=== PATIENT | male | born 2000 | race Caucasian/White ===

== ENCOUNTER 2023-11-28 21:11 | Emergency (ER) | payer BC ==
--- OUTSIDE RECORDS SUMMARY | 2023-11-28 21:15 | XMS REPORT | Continuity of Care Document ---
Author Name Unknown Address [address] [place] [address] [facility] [address] [place] [address] Care Team Providers Care Firearms Inspector Name Role Phone Pcp, Patient Does Not Have A Primary Care Physic [place] Doctor Unassigned, [place] Attending Clinician [facility], [facility] Fam Pob I Attending Clinician Unavailab Elsie Lovelace Attending Clinician ELSIE MCCAIN Attending Clinician Unavailable Payers Payer Name Policy Type Policy Number Effective Date Expirati on Date Source Allergies, Adverse Reactions, Alerts Allergy Name Allergy Type Status Severity Reaction(s) Onset Date Inactive Date Treating Clinician Comments Source NO KNOWN ALLERGIE S Drug Class Active [facility] Social History Social Habit Start Date Stop Date Quantity Comments Source Sexual orientation U [facility] Exposure to SARS-CoV-2 (event) 2019-09-30 00:00:00 2019-10-30 11:42:00 Not sure [facility] Sex Assigned At 2000 00:00:00 2000 00:00:00 [facility] Smoking Status Start Date Stop Date Source Tobacco smoking consumption unknown [facility] Procedures Procedure Date / Time Performed Performing Clinicia n Source EXTERNAL PROVIDER RECORDS 2019-11-09 05:01:00 Doctor Unassigned, [place] [facility] Encounters Start Date/Time End Date/Time Encounter Type Admission Type Attending Clinicians Care Facility Care Department Encounter ID Source 2019-11-09 00:00:00 2019-11-09 00:00:00 Orders Only Doctor Unassigned, [place] [facility] 1.114 [id number] [facility] 2019-10-31 00:00:00 2019-10-31 00:00:00 Patient Secure Msg Doctor Unassigned, [place] [facility] 1..114 [id number] [facility] 2019-10-30 11:38:46 2019-10-30 11:43:12 Laboratory Only Lab, [facility] [address] .114 [id number] [facility] 2019-10-30 11:40:00 2019-10-30 11:40:00 Outpatient R [facility] [id number] [facility] 2019-10-22 16:00:00 2019-10-22 16:00:00 Outpatient R [facility] [id number] [facility] 2019-10-22 14:52:32 2019-10-22 15:12:32 Laboratory Only Lab, [facility] .114 [id number] [facility] 2019-10-13 00:00:00 2019-10-13 00:00:00 Telephone Lab, [facility] Pob I [facility] 1.114 [id number] [facility] 2019-10-12 14:33:24 2019-10-12 14:53:24 Laboratory Only Lab, [facility] [address] .0.114 [id number] [facility] 2019-10-12 14:40:00 2019-10-12 14:40:00 Outpatient ELSIE SINGLETON [facility] [id number] [facility]
--- NOTE | 2023-11-28 21:31 | EDPHYS ---
Physician Documentation [facility] Name: Palmer Mares Age: 23 yrs Sex: Male : 2000 Arrival Date: 11/28/2023 Time: 21:11 Bed Waiting Private MD: ED Physician José Sneed HPI: 11/27 21:28 This 23 yrs old Male presents to ER via Ambulatory with complaints of Leg ec2 Injury. 21:28 Patient arrives today for evaluation after sustaining an injury to the left anterior ec2 tibia. Patient hit his leg against a coffee table. Patient reports he is unsure of his tetanus status. Patient has been bearing weight on it without issue. . Historical: - Allergies: 21:24 No Known Allergies; ap3 - Home Meds: 21:24 None [Active]; ap3 - PMHx: 21:24 None; ap3 - Immunization history:: Last tetanus immunization: not immunized. - Infectious Disease History:: Denies. - Social history:: Smoking status: Patient denies any tobacco usage or history of. ROS: 21:28 Constitutional: as per hpi ec2 Exam: 21:28 Constitutional: GEN: NAD Head: atraumatic Eyes: EOMI Ears: External ears are ec2 normal. CV: regular rate LUNGS: no respiratory distress ABD: non-distended SKIN: 3 cm laceration noted to the left anterior tibia MSK: no evidence of trauma Vital Signs: 21:23 BP 137 / 82; Pulse 60; Resp 17; Temp 98.4; Pulse Ox 100% ; Weight 74.84 kg; Height 6 ap3 ft. 1 in. ; Pain 0/10; 21:23 Body Mass Index 21.77 (74.84 kg, 185.42 cm) ap3 21:23 Pain Scale: Adult ap3 Laceration: 21:28 Wound Repair of 3cm ( 1.2in ) subcutaneous laceration to left leg. Distal ec2 neuro/vascular/tendon intact. Wound prep: Moderate cleansing by nurse. Skin closed with 3 1-0 [place] using staple gun. Patient tolerated well. MDM: 21:24 Patient medically screened. ec2 21:28 Data reviewed: vital signs. ED course: Patient arrives today for evaluation after ec2 laceration to the left anterior tibia. I repaired the laceration with aditi as above. Will discharge home. Return precautions given. . 11/27 21:30 Order name: Wound Care; Complete Time: 21:32 ec2 Administered Medications: 21:37 Drug: Boostrix Tdap IM 0.5 ml IM once; as a single dose Route: IM; Site: right deltoid; ap3 Disposition Summary: 11/28/23 21:31 Discharge Ordered Notes: You need to have the aditi removed in 7 to 10 days. Location: Home ec2 Condition: Stable ec2 Diagnosis - Laceration without foreign body, left lower leg ec2 Followup: ec2 - With: Private Physician - When: - Reason: Re-evaluation by your physician Discharge Instructions: - Discharge Summary Sheet ec2 - Laceration Care, Adult, [id number] ec2 Forms: - Medication Reconciliation Form ec2 - Antibiotic Education ec2 - Prescription Opioid Use ec2 - Patient Portal Instructions ec2 - Leadership Thank You Letter ec2 Signatures: Vannesa Lino RN RN ap3 José Sneed MD MD ec2
--- NOTE | 2023-11-28 21:31 | ER ---
Nurse's Notes [facility] Name: Palmer Mares Age: 23 yrs Sex: Male : 2000 Arrival Date: 11/28/2023 Time: 21:11 Bed Waiting Private MD: Diagnosis: Laceration without foreign body, left lower leg Presentation: 11/27 21:23 Chief complaint: Patient states: he hit his left lower leg on a fire pit [employer]. patient ap3 denies any pain at this time. Coronavirus screen: At this time, the client does not indicate any symptoms associated with coronavirus-19. Ebola Screen: No symptoms or risks identified at this time. Initial Sepsis Screen: Does the patient meet any 2 criteria? No. Patient's initial sepsis screen is negative. Does the patient have a suspected source of infection? No. Patient's initial sepsis screen is negative. Risk Assessment: Do you want to hurt yourself or someone else? Patient reports no desire to harm self or others. Onset of symptoms was November 28, 2023. 21:23 Method Of Arrival: Ambulatory ap3 21:23 Acuity: TOD 4 ap3 Triage Assessment: 21:24 General: Appears in no apparent distress. Behavior is calm, cooperative, appropriate ap3 for age. Pain: Denies pain. Neuro: Level of Consciousness is awake, alert, obeys commands, Oriented to person, place, time, situation, Appropriate for age. Cardiovascular: Patient's skin is warm and dry. Respiratory: Airway is patent Respiratory effort is even, unlabored, Respiratory pattern is regular, symmetrical. Musculoskeletal:. Injury Description: Laceration sustained to left gilmore. Historical: - Allergies: 21:24 No Known Allergies; ap3 - Home Meds: 21:24 None [Active]; ap3 - PMHx: 21:24 None; ap3 - Immunization history:: Last tetanus immunization: not immunized. - Infectious Disease History:: Denies. - Social history:: Smoking status: Patient denies any tobacco usage or history of. Screenin:25 [facility] ED Fall Risk Assessment (Adult) History of falling in the last 3 months, ap3 including since admission No falls in past 3 months (0 pts) Confusion or Disorientation No (0 pts) Intoxicated or Sedated No (0 pts) Impaired Gait No (0 pts) Mobility Assist Device Used No (0 pt) Altered Elimination No (0 pt) Score/Fall Risk Level 0 - 2 = Low Risk Oriented to surroundings, Maintained a safe environment, Educated pt \T\ family on fall prevention, incl call for assistance when getting out of bed, Assessed \T\ reinforced patient's understanding of fall precautions, Hourly rounding (assess needs \T\ fall precautionary measures) done, Used ambulatory aids as needed (educated on \T\ assisted with), Used gait belt as appropriate. Abuse screen: Denies threats or abuse. Nutritional screening: No deficits noted. Tuberculosis screening: No symptoms or risk factors identified. Vital Signs: 21:23 BP 137 / 82; Pulse 60; Resp 17; Temp 98.4; Pulse Ox 100% ; Weight 74.84 kg; Height 6 ap3 ft. 1 in. ; Pain 0/10; 21:23 Body Mass Index 21.77 (74.84 kg, 185.42 cm) ap3 21:23 Pain Scale: Adult ap3 ED Course: 21:13 Patient arrived in ED. gm2 21:15 José Sneed MD is Attending Physician. ec2 21:24 Triage completed. ap3 21:25 Arm band placed on right wrist. ap3 21:32 Irrigation on left gilmore. ap3 21:37 Assist provider with laceration repair on left gilmore using aditi. Patient did not have ap3 IV access during this emergency room visit. 21:38 Patient has correct armband on for positive identification. Provided Education on: ap3 wound care. Administered Medications: 21:37 Drug: Boostrix Tdap IM 0.5 ml IM once; as a single dose Route: IM; Site: right deltoid; ap3 Medication: 21:38 Vaccine Information Statement (VIS) provided today. Questions and/or concerns ap3 addressed. VIS edition date: November 01, 2020. Outcome: 21:31 Discharge ordered by . ec2 21:37 Discharged to home ambulatory, with family, ap3 21:37 Condition: good 21:37 Discharge instructions given to patient, Instructed on discharge instructions, follow up and referral plans. wound care, Demonstrated understanding of instructions, follow-up care, wound care, 21:38 Patient left the ED. ap3 Signatures: Vannesa Lino RN RN ap3 José Sneed MD MD 2 Kiki Smith [facility]
[2023-11-28] MEDS ORDERED: TDAP (DIPHTH,PERTUSS(ACELL),TET VAC) 0.5 ML VIAL IMVAC ONE (21:33)
[2023-11-28 21:58] VITALS: BP 137/82; TEMP 98.4; O2SAT 100
== END 2023-11-28 21:38 | disposition home or self-care (01) ==
LOC: ER 21:11
PROC: 0HQLXZZ Repair Left Lower Leg Skin, External Approach (ICD-10-PCS; principal; 2023-11-28)
DX: S81.812A Laceration without foreign body, left lower leg, initial encounter (principal)
CPT/HCPCS: 12002; 96372; 99284